=== PATIENT | female | born 2000 | race Caucasian/White ===

== ENCOUNTER 2019-08-01 12:27 | Emergency (ER) | payer BC ==
[~2019-08-01] VITALS: Ht 170.2 cm; Wt 78.5 kg
[2019-08-01 12:28] VITALS: BP 145/72
--- NOTE | 2019-08-01 13:00 | NUR ---
PT STATES SHE HAS PAIN AND WOUND ON BUTTOCK. PT STATES SHE HAS BEEN FEELING DIZZY AND NAUSEATED TODAY AND BLACKED OUT AT URGENT CARE. BOYFRIEND SAID SHE WAS OUT FOR ABOUT A MINUTE.
== END 2019-08-01 13:13 | disposition home or self-care (01) ==
LOC: ED 13:05
DX: L03.317 Cellulitis of buttock (principal)
CPT/HCPCS: 99283

== ENCOUNTER 2019-08-03 11:45 | Emergency (ER) | payer BC ==
[~2019-08-03] VITALS: Ht 170.2 cm; Wt 79.2 kg
[2019-08-03 12:15] VITALS: BP 122/75
[2019-08-03] MEDS ORDERED: LIDOCAINE-MPF 1%, 5ML ONE (12:51)
[2019-08-03] MEDS ORDERED: LIDOCAINE-MPF 1%, 5ML INFIL ONE (13:00)
== END 2019-08-03 13:46 | disposition home or self-care (01) ==
LOC: ED 13:44
DX: L05.01 Pilonidal cyst with abscess (principal)
CPT/HCPCS: 10080; 99283